=== PATIENT | female | born 1990 ===

== ENCOUNTER 2016-06-29 12:26 | Emergency (ER) | payer MEDICAID ==
[2016-06-29 12:33] VITALS: BP 115/64; PULSE 90; RESP 18; TEMP 98; O2SAT 99
--- NOTE | 2016-06-29 13:16 | ED PDOC ---
HPI: General Adult Time Seen by Provider: 06/29/16 12:57 Chief Complaint (Nursing): Back Pain Chief Complaint (Provider): Left Flank Pain History Per: Patient History/Exam Limitations: no limitations Onset/Duration Of Symptoms: Days (x4) Current Symptoms Are (Timing): Still Present Additional Complaint(s): 12:57 Amarilis Carranza is a 26 year old female with a history of kidney stones and UTIs that presents to the ED with a chief complaint of left flank pain that radiates to her left pelvic and left upper quadrant area that she has been experiencing for the past four days. Patient reports associated nausea, but denies any vomiting, fever, chills, shortness of breath, or hematuria. She reports regular menstrual cycles and denies any history of ovarian cysts. Past Medical History Reviewed: Historical Data, Nursing Documentation, Vital Signs Vital Signs: Last Vital Signs Temp 98.0 F 06/29/16 12:29 Pulse 90 06/29/16 12:29 Resp 18 06/29/16 12:29 BP 115/64 06/29/16 12:29 Pulse Ox 99 06/29/16 13:19 - Medical History PMH: Kidney Stones Other PMH: UTIs - Family History Family History: States: Unknown Family Hx - Home Medications Home Medications: Ambulatory Orders Medication Instructions Recorded Famotidine [Pepcid] 20 mg PO BID #16 tab 06/29/16 Ketorolac Tromethamine [Toradol] 10 mg PO TID #20 cap 06/29/16 Phentermine HCl [Adipex-P] 1 tab PO DAILY 06/29/16 - Allergies Allergies/Adverse Reactions: Allergies Allergy/AdvReac Type Severity Reaction Status Date / Time seafood Allergy URTICARIA Uncoded 11/03/15 10:28 Review of Systems Constitutional: Negative for: Fever, Chills Respiratory: Negative for: Shortness of Breath Gastrointestinal: Positive for: Nausea, Abdominal Pain (left upper quadrant pain ). Negative for: Vomiting Genitourinary Female: Positive for: Pelvic Pain (left pelvic pain). Negative for: Hematuria Musculoskeletal: Positive for: Back Pain (left flank pain) Physical Exam - Reviewed Nursing Documentation Reviewed: Yes Vital Signs Reviewed: Yes - Physical Exam Appears: Positive for: Non-toxic, No Acute Distress Head Exam: Positive for: ATRAUMATIC, NORMOCEPHALIC Skin: Positive for: Normal Color, Warm Eye Exam: Positive for: Normal appearance, EOMI, PERRL Cardiovascular/Chest: Positive for: Regular Rate, Rhythm. Negative for: Murmur Respiratory: Positive for: Normal Breath Sounds. Negative for: Wheezing Gastrointestinal/Abdominal: Positive for: Soft. Negative for: Tenderness Pelvic Exam: Negative for: Other (no pelvic tenderness) Back: Positive for: Normal Inspection. Negative for: L CVA Tenderness, R CVA Tenderness Neurologic/Psych: Positive for: Alert, Oriented - ECG O2 Sat by Pulse Oximetry: 99 (RA) Pulse Ox Interpretation: Normal Medical Decision Making Medical Decision Makin:00 Initial Impression: Radiating Left Flank Pain Initial Plan: * Urinalysis * Reevaluation * * prelim US read-Cyst on Right side. Let ovary seen with normal blood flow b/l and some fluids in endometrium. no acute pathology noted in Left side of pelvic which is where pt ia having pain. UA is normal therefore low suspicion for UTI or renal stone. pt not in pain while in ED with stable VS. pt strongly advised to f.u with [facility] and with GI.admits to hx of GI upset after etoh intake to the [facility]. Scribe Attestation: Documented by Luana Whitehead, acting as a scribe for Awa Arreola PA-C. Provider Scribe Attestation: All medical record entries made by the Scribe were at my direction and personally dictated by me. I have reviewed the chart and agree that the record accurately reflects my personal performance of the history, physical exam, medical decision making, and the department course for this patient. I have also personally directed, reviewed, and agree with the discharge instructions and disposition. Disposition - Clinical Impression Clinical Impression: Pelvic pain - Patient ED Disposition Is Patient to be Admitted: No Counseled Patient/Family Regarding: Need For Followup, Rx Given - Disposition Referrals: [facility] [Outside] [facility] [Outside] Disposition: Routine/Home Disposition Time: 15:21 Condition: IMPROVED Prescriptions: Famotidine [Pepcid] 20 mg PO BID #16 tab Ketorolac Tromethamine [Toradol] 10 mg PO TID #20 cap Instructions: Pelvic Pain in Women (ED), Gastroesophageal Reflux Disease (ED), Peptic Ulcer (ED), Gastritis (DC)
[2016-06-29 13:50] LABS: RBC URINE 2 /hpf (0-3); URINE BILIRUBIN NEGATIVE (NEGATIVE); URINE BLOOD NEGATIVE (NEGATIVE); URINE COLOR YELLOW (YELLOW); URINE GLUCOSE (UA) NEG (Normal); URINE KETONE NEGATIVE (NEGATIVE); URINE LEUKOCYTE ESTERASE NEG Leu/uL (Negative); URINE PROTEIN NEGATIVE (NEGATIVE); URINE UROBILINOGEN 0.2-1.0 mg/dL (0.2-1.0); WBC URINE < 1 /hpf (0-5)
--- NOTE | 2016-06-29 17:13 | US ---
PROCEDURE: Pelvic ultrasound dated 06/29/2016 HISTORY: RIGHT SIDED PELVIC PAIN COMPARISON: No prior study available comparison TECHNIQUE: Transabdominal/transvaginal sonographic evaluation of the pelvis performed. FINDINGS: Uterus is anteverted measuring approximately 8.0 x 2.7 x 4.2 cm. There is small amount of fluid within the endometrial canal. Endometrium is by fluid though the anterior endometrium measures approximately 3 mm and posterior endometrium measures approximately 4 mm. Right ovary measures approximately 3.7 x 2.9 x 3.0 cm and exhibits arterial flow. There is a small cyst measuring 2 x 1.4 x 1.7 cm. The left ovary is seen only on transabdominal imaging and measures approximate 3.7 x 1.7 x 2.0 cm. Left ovary exhibits arterial flow IMPRESSION: There is a small amount of free fluid within the endometrial canal nonspecific. Small right ovarian cyst ; consider follow-up ultrasound in 6 weeks to assess for resolution.
== END 2016-06-29 15:29 | disposition home or self-care (01) ==
LOC: H.ER 12:26
DX: R10.2 Pelvic and perineal pain (principal); M54.9 Dorsalgia, unspecified; R11.0 Nausea; N83.201 Unspecified ovarian cyst, right side

== ENCOUNTER 2017-04-15 23:44 | Emergency (ER) | payer MEDICAID ==
[2017-04-15 23:45] VITALS: BMI 41.5
[2017-04-16 00:07] VITALS: TEMP 98.1
[2017-04-16] MEDS: Sodium Chloride 0.9% 1,000 ML IV STA (01:26)
[2017-04-16 01:47] LABS: BASO % 0.6 % (0.0-2.0); HEMOGLOBIN 11.9 g/dL (12.0-16.0); LYMPH # 1.6 K/uL (1.0-4.3); LYMPH % 31.8 % (20.0-40.0); MEAN CELL VOLUME 83.5 fl (81.0-99.0); MEAN CORPUSCULAR HEMOGLOBIN 27.5 pg (27.0-31.0); MEAN CORPUSCULAR HGB CONC 32.9 g/dL (33.0-37.0); MONO # 0.4 K/uL (0.0-0.8); MONO % 7.8 % (0.0-10.0); NEUT % 58.8 % (50.0-75.0); NRBC % 0.2 % (0.0-0.0); RBC 4.32 Mil/uL (3.80-5.20); RED CELL DISTRIBUTION WIDTH 14.4 % (11.5-14.5)
[2017-04-16 01:55] LABS: ALB/GLOB RATIO 1.2 (1.0-2.1); ALBUMIN 4.1 g/dL (3.5-5.0); ALT/SGPT 26 U/L (9-52); AST/SGOT 17 U/L (14-36); BLOOD UREA NITROGEN 14 mg/dl (7-17); CALCIUM 9.1 mg/dL (8.4-10.2); GFR AFRICAN-AMERICAN > 60; GFR NON-AFRICAN AMERICAN > 60
[2017-04-16 02:11] LABS: T3 UPTAKE 34.2 % (23.0-41.0); T4 10.1 ug/dl (5.5-11.0)
--- NOTE | 2017-04-16 02:14 | ED PDOC ---
HPI: Hypertension/Hypotension Time Seen by Provider: 04/16/17 00:17 Chief Complaint (Nursing): Palpitations Chief Complaint (Provider): Palpitations History Per: Patient History/Exam Limitations: no limitations Onset/Duration Of Symptoms: Hrs (since earlier tonight), Intermittent Episodes Current Symptoms Are (Timing): Still Present Associated Symptoms: denies: Chest Pain, Dyspnea Exacerbating Factor(s): Neg: Injestion Of Caffeinated Beverages Additional Complaint(s): 27 year old female presents to ED with complaints of intermittent palpitations since earlier tonight and has no past medical history. (-) excess caffeine consumption, anxiety, chest pain, or SOB. Notes that palpitations are unrelated to activity. Reports that she is currently taking Prilosec for nonspecific stomach irritation and is pending results from an endoscopy. Patient also notes that her mouth feels dry. PCP: [facility] Past Medical History Reviewed: Historical Data, Nursing Documentation, Vital Signs Vital Signs: Last Vital Signs Temp 98.1 F 04/16/17 00:03 Pulse 81 04/16/17 00:03 Resp 17 04/16/17 00:03 BP 114/76 04/16/17 00:03 Pulse Ox 100 04/16/17 00:03 - Medical History PMH: Kidney Stones - Surgical History Surgical History: No Surg Hx - Family History Family History: States: Unknown Family Hx - Home Medications Home Medications: Ambulatory Orders Medication Instructions Recorded Famotidine [Pepcid] 20 mg PO BID #16 tab 06/29/16 Ketorolac Tromethamine [Toradol] 10 mg PO TID #20 cap 06/29/16 Phentermine HCl [Adipex-P] 1 tab PO DAILY 06/29/16 Acetaminophen [Tylenol 325mg tab] 650 mg PO Q6 PRN #40 tab 03/09/17 Famotidine [Pepcid] 20 mg PO BID PRN #40 tab 03/09/17 Ipratropium [Atrovent HFA] 0.018 mg IH Q6 PRN 7 Days #1 bottle 03/09/17 - Allergies Allergies/Adverse Reactions: Allergies Allergy/AdvReac Type Severity Reaction Status Date / Time seafood Allergy URTICARIA Uncoded 04/16/17 00:06 Review of Systems ROS Statement: Except As Marked, All Systems Reviewed And Found Negative ENT: Positive for: Other ("mouth is dry") Cardiovascular: Positive for: Palpitations. Negative for: Chest Pain Respiratory: Negative for: Shortness of Breath Psych: Negative for: Anxiety Physical Exam - Reviewed Nursing Documentation Reviewed: Yes Vital Signs Reviewed: Yes - Physical Exam Appears: Positive for: Non-toxic, No Acute Distress (overweight) Skin: Positive for: Normal Color, Warm, Dry Eye Exam: Positive for: Normal appearance ENT: Positive for: Normal ENT Inspection Neck: Positive for: Normal, Painless ROM, Supple Cardiovascular/Chest: Positive for: Regular Rate, Rhythm. Negative for: Murmur Respiratory: Positive for: Normal Breath Sounds. Negative for: Respiratory Distress Gastrointestinal/Abdominal: Positive for: Soft. Negative for: Tenderness Extremity: Positive for: Normal ROM. Negative for: Deformity Neurologic/Psych: Positive for: Alert, Oriented. Negative for: Motor/Sensory Deficits - Laboratory Results Result Diagrams: 04/16/17 01:42 04/16/17 01:42 - ECG O2 Sat by Pulse Oximetry: 100 (RA) Pulse Ox Interpretation: Normal Medical Decision Making Medical Decision Makin Initial impression: arrhythmia v thyroid disease v anxiety Initial plan: * Labs * T3 uptake * T4 * TSH * Trop I * UPreg * UDip * NS IV 0408 Labs reviewed: no clinically significant abnormalities. Upon re-evaluation, patient is feeling better. 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 Return precautions given, such as worsening or new symptoms. Patient is stable for discharge home. Scribe Attestation: Documented by Rachel Jamil acting as a scribe for Arik Hooks MD. Scribe Attestation: All medical record entries made by the Scribe were at my direction and personally dictated by me. I have reviewed the chart and agree that the record accurately reflects my personal performance of the history, physical exam, medical decision making, and the department course for this patient. I have also personally directed, reviewed, and agree with the discharge instructions and disposition. Disposition - Clinical Impression Clinical Impression: Palpitations - Disposition Referrals: Luciano Aparicio MD [Staff Provider] - Leonid Daley, DNP, [facility] [employer] [employer] [facility] [Primary Care Provider] - Disposition: Routine/Home Disposition Time: 04:09 Condition: IMPROVED Instructions: Palpitations Forms: [employer] (Spanish)
[2017-04-16 04:17] VITALS: BP 133/74; PULSE 76; RESP 14
[2017-04-16 04:23] VITALS: O2SAT 100
== END 2017-04-16 04:40 | disposition home or self-care (01) ==
LOC: H.ER 23:44
DX: R00.2 Palpitations (principal); F41.9 Anxiety disorder, unspecified; I10 Essential (primary) hypertension
CPT/HCPCS: 80053; 81025; 84436; 84443; 84479; 84484; 85025; 96360; 96361; 99283; J7040